=== PATIENT | female | born 1960 | race Caucasian/White ===

== ENCOUNTER 2017-06-02 11:04 | Inpatient (IN) | payer OTHER ==
[2017-06-02] MEDS ORDERED: Diltiazem 25 MG/5 ML SDV IVPUSH ONE ×3 (11:16→13:11)
--- NOTE | 2017-06-02 11:23 | EDM.PDOC ---
ED HPI GENERAL MEDICAL PROBLEM - General Stated Complaint: CHEST PAIN Time Seen by Provider: 06/02/17 11:04 Source of Information: Reports: Patient, Family, RN History Limitations: Reports: No Limitations - History of Present Illness INITIAL COMMENTS - FREE TEXT/NARRATIVE: 56 years old w f with a history of CAD, S/P CAB 05/19/2017 at [facility], was at the cardiorehab center here at [place], when she suddenly felt palpitations. Her monitor showed A fib with RVR. This is a new Dx. Pt is on Amioderone> Pt denies any constitutional symptoms like N/V/ CP, SOB or dizziness. She is otherwise in her usual state of health. Pt was brought to the ed by wheel chair. Onset: Today Onset Date: 06/02/17 Onset Time: 10:00 Duration: Hour(s):, Intermittent Location: Reports: Chest Severity: Moderate Context: Reports: Other (at rest) Associated Symptoms: Reports: No Other Symptoms - Related Data Allergies Allergy/AdvReac Type Severity Reaction Status Date / Time No Known Allergies Allergy Verified 06/02/17 11:39 Home Meds: Home Meds Aspirin [Ecotrin] 81 mg PO DAILY 01/27/17 [History] Clopidogrel [Plavix] 75 mg PO DAILY 01/27/17 [History] atorvaSTATin [Lipitor] 80 mg PO DAILY 01/27/17 [History] Albuterol [Proventil HFA] 2 puff INH Q6H PRN 06/02/17 [History] Amiodarone [Cordarone] 200 mg PO DAILY 06/02/17 [History] Ergocalciferol (Vitamin D2) [Ergocalciferol] 1 gm MC DAILY 06/02/17 [History] Hydrocodone/Acetaminophen [[place] 10-325 Tablet] 1 each PO Q4H PRN 06/02/17 [ History] Metoclopramide HCl [Reglan] 10 mg PO QIDACANDBED 06/02/17 [History] Metoprolol Tartrate 25 mg PO BID 06/02/17 [History] Multivitamin [Multivitamins] 1 each PO DAILY 06/02/17 [History] Omeprazole 20 mg PO DAILY 06/02/17 [History] Sennosides/Docusate Sodium [Senna-Docusate Sodium] 1 each PO BID PRN 06/02/17 [ History] Past Medical History Cardiovascular History: Reports: Angina, CAD, Heart Murmur, High Cholesterol, Hypertension Musculoskeletal History: Reports: Osteoarthritis Endocrine/Metabolic History: Reports: Obesity/BMI 30+ Other Immunologic History: HX OF MRSA - Past Surgical History Cardiovascular Surgical History: Reports: Coronary Artery Stent Female Surgical History: Reports: Hysterectomy Musculoskeletal Surgical History: Reports: Knee Replacement ED ROS GENERAL - Review of Systems Review Of Systems: See Below Constitutional: Reports: No Symptoms HEENT: Reports: No Symptoms Respiratory: Reports: No Symptoms Cardiovascular: Reports: Palpitations Endocrine: Reports: No Symptoms GI/Abdominal: Reports: No Symptoms : Reports: No Symptoms Musculoskeletal: Reports: No Symptoms Skin: Reports: No Symptoms Neurological: Reports: No Symptoms Psychiatric: Reports: No Symptoms Hematologic/Lymphatic: Reports: No Symptoms Immunologic: Reports: No Symptoms ED EXAM, GENERAL - Physical Exam Exam: See Below Exam Limited By: No Limitations General Appearance: Alert, WD/WN, No Apparent Distress Eye Exam: Bilateral Eye: Normal Inspection Ears: Normal External Exam Ear Exam: Bilateral Ear: Auricle Normal Nose: Normal Inspection, Normal Mucosa Throat/Mouth: Normal Inspection, Normal Lips Head: Atraumatic, Normocephalic Neck: Normal Inspection, Supple, Non-Tender, Full Range of Motion Respiratory/Chest: No Respiratory Distress, Other (decreased BS left lower lung) Cardiovascular: Normal Peripheral Pulses, Irregularly Irregular Peripheral Pulses: 1+: Femoral (L), Femoral (R) GI/Abdominal: Normal Bowel Sounds, Soft, Non-Tender, No Organomegaly, No Distention (Female) Exam: Deferred Rectal (Female) Exam: Deferred Back Exam: Normal Inspection, Full Range of Motion Extremities: Normal Inspection, Normal Range of Motion, Non-Tender, No Pedal Edema Neurological: Alert, Oriented, CN II-XII Intact, Normal Cognition Psychiatric: Normal Affect, Normal Mood Skin Exam: Warm, Dry, Intact, Normal Color, No Rash Lymphatic: No Adenopathy EKG INTERPRETATION EKG Date: 06/02/17 Time: 11:10 Rhythm: A-Fib Rate (Beats/Min): 138 [place]: Normal P-Wave: Absent QRS: LBBB ST-T: Normal QT: Prolonged Comparison: Change From Previous EKG EKG Interpretation Comments: New onset of a fib compared to the EKG taken on 05/19/2017 at [facility] Course - Vital Signs Text/Narrative:: 56 years old w f with a history of CAD, S/P CAB 05/19/2017 at [facility], was at the cardiorehab center here at [place], when she suddenly felt palpitations. Her monitor showed A fib with RVR. This is a new Dx. Pt is on Amioderone> Pt denies any constitutional symptoms like N/V/ CP, SOB or dizziness. She is otherwise in her usual state of health. Pt was brought to the ed by wheel chair. PE: WNWD WF with A - fib with RVR ECG: Prolonged QTc 506, is on Amioderone (can cause prolonged QTc) LBBB, A fib with RVR (new) Labs: WBC 12.5 HGB 11.1 HKT 33.3 TSH 15.4 (<5.0) BNP 456 Mg 1.7 (>1.8) Na 139 K 3.8 GFR >60 Imaging: CXR pneumonia LLL of lung as per RAD Impression: A fib with RVR, new onset. LBBB (old) S/P CABG 2 vesels May 19 2017 , Hypothyroidism (new), Hypomagnesemia (1.7), Pneumonia LLL of lung(new) 11.35 am consultation: Dr. Gould, [id number], [facility]: She is not worried about a QTc of 509, Amioderone to cont is OK, Cardiazem for A Fib is OK. Tx: Cadiazem, NS, MG sulfate Reexam: Improved to a rate of 66-105. Pt denies any constitutional symptoms. 1.53 pm: Consultation: Dr. Dunne, Hospitalist: Admit to ICU Cadiazem drip was not ordered by me because her HR improved spontaneously after my consultation with Dr. Dunne. Plan: Admitto ICU Last Recorded V/S: Last Vital Signs Temp 37.1 C 06/02/17 23:45 Pulse 72 06/02/17 23:45 Resp 06/02/17 23:45 BP 146/66 H 06/02/17 23:45 Pulse Ox 94 L 06/02/17 23:45 - Orders/Labs/Meds Orders: Active Orders 24 hr Category Date Time Status Patient Status [ADT] Routine ADT 06/02/17 14:01 Active Cardiac Monitoring [RC] 08,16,00 Care 06/02/17 14:06 Active Oxygen Therapy [RC] PRN Care 06/02/17 14:01 Active Up With Assistance [RC] 09,13,17,21 Care 06/02/17 14:00 Active Vital Signs [RC] 00,04,08,12,16,20 Care 06/02/17 14:01 Active 2 Gram Sodium Diet [DIET] Diet 06/02/17 Breakfast Ordered Docusate Sodium [Colace] Med 06/02/17 14:00 Active 100 mg PO BID PRN Ondansetron [Zofran] Med 06/02/17 14:00 Active 4 mg IV Q4H PRN Sodium Chloride 0.9% [Saline Flush] Med 06/02/17 14:00 Active 10 ml FLUSH ASDIRECTED PRN Peripheral IV Insertion Adult [OM.PC] Routine Oth 06/02/17 14:00 Ordered Resuscitation Status Routine Resus Stat 06/02/17 14:00 Ordered EKG 12 Lead [EK] Routine Ther 06/02/17 11:11 Ordered EKG 12 Lead [EK] Routine Ther 06/02/17 12:19 Ordered Medication Orders Hydrocodone Bitart/Acetaminophen ([place] 325-10 Mg) 1 tab PO Q4H PRN PRN Reason: Pain Last Admin: 06/03/17 02:49 Dose: 1 tab Admin: 06/02/17 19:17 Dose: 1 tab Albuterol (Ventolin Hfa) 0 gm INH Q6H PRN PRN Reason: Dyspnea Amiodarone HCl (Cordarone) 200 mg PO DAILY [facility] Aspirin (Halfprin) 81 mg PO DAILY [facility] Atorvastatin Calcium (Lipitor) 80 mg PO DAILY [facility] Clopidogrel Bisulfate (Plavix) 75 mg PO DAILY [facility] Docusate Sodium (Colace) 100 mg PO BID PRN PRN Reason: Constipation Levothyroxine Sodium (Synthroid) 50 mcg PO 0600 [facility] Last Admin: 06/02/17 18:07 Dose: 50 mcg Metoclopramide HCl (Reglan) 10 mg PO QIDACANDBED [facility] Last Admin: 06/02/17 20:10 Dose: 10 mg Admin: 06/02/17 18:08 Dose: 10 mg Metoprolol Tartrate (Lopressor) 25 mg PO BID [facility] Last Admin: 06/02/17 20:10 Dose: 25 mg Multivitamins/Minerals/Vitamin C (Tab-A-Nicole) 1 tab PO DAILY [facility] Non-Formulary Medication (Ergocalciferol (Vitamin D2) [Ergocalciferol]) 1 gm MC DAILY [facility] Ondansetron HCl (Zofran) 4 mg IV Q4H PRN PRN Reason: Nausea/Vomiting Pantoprazole Sodium (Protonix) 40 mg PO ACBREAKFAST DILIP Senna/Docusate Sodium (Senna Plus) 1 tab PO BID PRN PRN Reason: Constipation Sodium Chloride (Saline Flush) 10 ml FLUSH ASDIRECTED PRN PRN Reason: Keep Vein Open Labs: Laboratory Tests 06/02/17 06/02/17 06/02/17 Range/Units 11:15 11:15 11:15 WBC 12.5 H (4.5-12.0) X10-3/uL RBC 3.86 (3.23-5.20) x10(6)uL Hgb 11.1 L (11.5-15.5) g/dL Hct 33.3 (30.0-51.3) % MCV 86.4 (80-96) fL MCH 28.9 (27.7-33.6) pg MCHC 33.4 (32.2-35.4) g/dL RDW 14.1 (11.5-15.5) % Plt Count 546 H (125-369) X10(3)uL MPV 8.6 (7.4-10.4) fL Add Manual Diff Yes Neutrophils % (Manual) 77 (46-82) % Lymphocytes % (Manual) 17 (13-37) % Monocytes % (Manual) 5 (4-12) % Eosinophils % (Manual) 1 (0-5) % Sodium 139 (135-145) mmol/L Potassium 3.8 (3.5-5.3) mmol/L Chloride 103 (100-110) mmol/L Carbon Dioxide 25 (23-29) mmol/L BUN 12 (5-20) mg/dL Creatinine 0.9 (0.6-1.3) mg/dL Est Cr Clr Drug Dosing TNP Estimated GFR (MDRD) > 60 (>60) BUN/Creatinine Ratio 13.3 (9-20) Glucose 107 (80-116) mg/dL Calcium 9.0 (8.6-10.2) mg/dL Magnesium 1.7 L (1.8-2.5) mg/dL Troponin I (0.02-0.06) NG/ML B-Natriuretic Peptide (0-100) pg/mL TSH, Ultra Sensitive 15.47 H* (0.4-5.5) nlU/mL Urine Color (YELLOW) Urine Appearance (CLEAR) Urine pH (5.0-6.5) Ur Specific [place] (1.010-1.025) Urine Protein (NEGATIVE) mg/dL Urine Glucose (UA) (NEGATIVE) mg/dL Urine Ketones (NEGATIVE) mg/dL Urine Occult Blood (NEGATIVE) Urine Nitrite (NEGATIVE) Urine Bilirubin (NEGATIVE) Urine Urobilinogen (NEGATIVE) mg/dL Ur Leukocyte Esterase (NEGATIVE) Urine WBC (0) Ur Squamous Epith Cells (NS,R,O) Urine Bacteria (NS) 06/02/17 06/02/17 06/02/17 Range/Units 11:15 11:15 13:10 WBC (4.5-12.0) X10-3/uL RBC (3.23-5.20) x10(6)uL Hgb (11.5-15.5) g/dL Hct (30.0-51.3) % MCV (80-96) fL MCH (27.7-33.6) pg MCHC (32.2-35.4) g/dL RDW (11.5-15.5) % Plt Count (125-369) X10(3)uL MPV (7.4-10.4) fL Add Manual Diff Neutrophils % (Manual) (46-82) % Lymphocytes % (Manual) (13-37) % Monocytes % (Manual) (4-12) % Eosinophils % (Manual) (0-5) % Sodium (135-145) mmol/L Potassium (3.5-5.3) mmol/L Chloride (100-110) mmol/L Carbon Dioxide (23-29) mmol/L BUN (5-20) mg/dL Creatinine (0.6-1.3) mg/dL Est Cr Clr Drug Dosing Estimated GFR (MDRD) (>60) BUN/Creatinine Ratio (9-20) Glucose (80-116) mg/dL Calcium (8.6-10.2) mg/dL Magnesium (1.8-2.5) mg/dL Troponin I < 0.01 L (0.02-0.06) NG/ML B-Natriuretic Peptide 437 H (0-100) pg/mL TSH, Ultra Sensitive (0.4-5.5) nlU/mL Urine Color Yellow (YELLOW) Urine Appearance Slightly cloudy (CLEAR) Urine pH 7.0 H (5.0-6.5) Ur Specific [place] 1.010 (1.010-1.025) Urine Protein Negative (NEGATIVE) mg/dL Urine Glucose (UA) Normal (NEGATIVE) mg/dL Urine Ketones Negative (NEGATIVE) mg/dL Urine Occult Blood Negative (NEGATIVE) Urine Nitrite Negative (NEGATIVE) Urine Bilirubin Negative (NEGATIVE) Urine Urobilinogen Normal (NEGATIVE) mg/dL Ur Leukocyte Esterase Negative (NEGATIVE) Urine WBC 0-5 (0) Ur Squamous Epith Cells Few H (NS,R,O) Urine Bacteria Few H (NS) Meds: Medications Generic Name Dose Route Start Last Admin Trade Name Freq PRN Reason Stop Dose Admin Hydrocodone Bitart/Acetaminophen 1 tab 06/02/17 17:23 06/03/17 02:49 [place] 325-10 Mg PO 1 tab Q4H PRN Administration Pain Albuterol 0 gm 06/02/17 17:23 Ventolin Hfa INH Q6H PRN Dyspnea Amiodarone HCl 200 mg 06/03/17 09:00 Cordarone PO DAILY [facility] Aspirin 81 mg 06/03/17 09:00 Halfprin PO DAILY [facility] Atorvastatin Calcium 80 mg 06/03/17 09:00 Lipitor PO DAILY [facility] Clopidogrel Bisulfate 75 mg 06/03/17 09:00 Plavix PO DAILY [facility] Docusate Sodium 100 mg 06/02/17 14:00 Colace PO BID PRN Constipation Levothyroxine Sodium 50 mcg 06/02/17 17:30 06/02/17 18:07 Synthroid PO 50 mcg 0600 [facility] Administration Metoclopramide HCl 10 mg 06/02/17 17:30 06/02/17 20:10 Reglan PO 10 mg QIDACANDBED [facility] Administration Metoprolol Tartrate 25 mg 06/02/17 21:00 06/02/17 20:10 Lopressor PO 25 mg BID [facility] Administration Multivitamins/Minerals/Vitamin C 1 tab 06/03/17 09:00 Tab-A-Nicole PO DAILY [facility] Non-Formulary Medication 1 gm 06/03/17 09:00 Ergocalciferol (Vitamin D2) [Ergocalciferol] MC DAILY [facility] Ondansetron HCl 4 mg 06/02/17 14:00 Zofran IV Q4H PRN Nausea/Vomiting Pantoprazole Sodium 40 mg 06/03/17 07:30 Protonix PO ACBREAKFAST DILIP Senna/Docusate Sodium 1 tab 06/02/17 17:23 Senna Plus PO BID PRN Constipation Sodium Chloride 10 ml 06/02/17 14:00 Saline Flush FLUSH ASDIRECTED PRN Keep Vein Open Discontinued Medications Generic Name Dose Route Start Last Admin Trade Name Freq PRN Reason Stop Dose Admin Diltiazem HCl 20 mg 06/02/17 11:16 06/02/17 11:56 Diltiazem IVPUSH 06/02/17 11:17 10 mg ONETIME ONE Administration Diltiazem HCl 10 mg 06/02/17 12:36 06/02/17 12:49 Diltiazem IVPUSH 06/02/17 12:37 10 mg ONETIME ONE Administration Diltiazem HCl 25 mg 06/02/17 13:11 06/02/17 13:33 Diltiazem IVPUSH 06/02/17 13:12 25 mg ONETIME ONE Administration Sodium Chloride 1,000 mls @ 999 mls/hr 06/02/17 12:08 06/02/17 12:14 Normal Saline IV 06/02/17 13:08 999 mls/hr .BOLUS ONE Administration Magnesium Sulfate 1 gm/ 52 mls @ 100 mls/hr 06/02/17 12:26 06/02/17 13:14 Dextrose/Water IV 06/02/17 12:57 100 mls/hr ONETIME ONE Administration Departure - Departure Time of Disposition: 14:00 Disposition: Admitted As Inpatient 65 Condition: Fair Clinical Impression: Atrial fibrillation with RVR - My Orders Last 24 Hours: My Active Orders 06/02/17 11:11 EKG 12 Lead [EK] Routine 06/02/17 12:19 EKG 12 Lead [EK] Routine 06/02/17 14:00 Up With Assistance [RC] ,,, Docusate Sodium [Colace] 100 mg PO BID PRN Ondansetron [Zofran] 4 mg IV Q4H PRN Sodium Chloride 0.9% [Saline Flush] 10 ml FLUSH ASDIRECTED PRN Peripheral IV Insertion Adult [OM.PC] Routine Resuscitation Status Routine 06/02/17 14:01 Patient Status [ADT] Routine Oxygen Therapy [RC] PRN Vital Signs [RC] 00,04,08,12,16,20 06/02/17 14:06 Cardiac Monitoring [RC] 08,16,00 06/02/17 Breakfast 2 Gram Sodium Diet [DIET] - Assessment/Plan Last 24 Hours: My Active Orders 06/02/17 11:11 EKG 12 Lead [EK] Routine 06/02/17 12:19 EKG 12 Lead [EK] Routine 06/02/17 14:00 Up With Assistance [RC] ,,, Docusate Sodium [Colace] 100 mg PO BID PRN Ondansetron [Zofran] 4 mg IV Q4H PRN Sodium Chloride 0.9% [Saline Flush] 10 ml FLUSH ASDIRECTED PRN Peripheral IV Insertion Adult [OM.PC] Routine Resuscitation Status Routine 06/02/17 14:01 Patient Status [ADT] Routine Oxygen Therapy [RC] PRN Vital Signs [RC] 00,04,08,12,16,20 06/02/17 14:06 Cardiac Monitoring [RC] 08,16,00 06/02/17 Breakfast 2 Gram Sodium Diet [DIET]
[2017-06-02] MEDS ORDERED: Sodium Chloride 0.9% 1,000 ML IV ONE (12:08)
[2017-06-02] MEDS ORDERED: Sodium Chloride 0.9% 10 ML Syringe FLUSH PRN (14:00)
[2017-06-02] MEDS ORDERED: Docusate Sodium 100 MG Cap PO PRN (14:00)
[2017-06-02] MEDS ORDERED: Ondansetron 4 MG/2 ML SDV IV PRN (14:00)
--- NOTE | 2017-06-02 15:14 | CR ---
INDICATION: Chest pain, history of bypass 10 days ago. CHEST: An AP portable upright view of the chest 06/02/2017 was compared with and 05/19/2017, revealing evidence of CABG surgery, as previously, with the heart enlarged. Overlying EKG leads are noted. Pleuroparenchymal changes are noted at the left lung base, which may be at least partly post-surgical. However, the possibility of pneumonia, pleuritis, and possibly atelectasis cannot be excluded. Very minimal blunting of the right costophrenic angle is noted, which could represent some minimal pleural effusion or pleuritis. The minor fissure is also visualized, suggesting minimal pleural fluid on the right. Moderate sized pleural effusion may be present on the left. The upper lung field pulmonary vasculature is mildly prominent, raising question of a mild or chronic CHF. COPD could also produce a similar appearance. IMPRESSION: 1. ASHD, cardiomegaly, post CABG surgery changes., some of which may be pleuroparenchymal changes at the left lung base. However, pneumonia and pleuritis, and possibly atelectasis, as well as a moderate sized pleural effusion, cannot be excluded on the left. Findings should be correlated clinically. 2. Minimal pleural effusion on the right. 3. Possible COPD. Report was given by phone to Dr. Zac altman pdary (06/02/2017) HILARY
[2017-06-02] MEDS ORDERED: Albuterol 8 GM Inhaler INH PRN (17:23)
--- NOTE | 2017-06-02 17:30 | PCM.HP ---
H&P History of Present Illness - General Date of Service: 06/02/17 Admit Problem/Dx: Admission Diagnosis/Problem Admission Diagnosis/Problem Atrial fibrillation with rapid ventricular response Source of Information: Patient History Limitations: Reports: No Limitations - History of Present Illness Initial Comments - Free Text/Narative: This is a 56-year-old female patient but had bypass surgery by Dr. Guillermo 10 days ago. She states last 2 days she's been having some chest palpitations and sometimes low pressure. It comes and goes. She came to [place] today to start her cardiac rehabilitation. In her heart rate was racing. So she is brought to the ER and found to be in atrial flutter. She states she was atrophic after her bypass surgery was given amiodarone. She denies shortness of breath, wheezing, fevers, chills, ear pain, sore throat. - Related Data Allergies/Adverse Reactions: Allergies Allergy/AdvReac Type Severity Reaction Status Date / Time No Known Allergies Allergy Verified 06/02/17 11:39 Home Medications: Home Meds Aspirin [Ecotrin] 81 mg PO DAILY 01/27/17 [History] Clopidogrel [Plavix] 75 mg PO DAILY 01/27/17 [History] atorvaSTATin [Lipitor] 80 mg PO DAILY 01/27/17 [History] Albuterol [Proventil HFA] 2 puff INH Q6H PRN 06/02/17 [History] Amiodarone [Cordarone] 200 mg PO DAILY 06/02/17 [History] Ergocalciferol (Vitamin D2) [Ergocalciferol] 1 gm MC DAILY 06/02/17 [History] Hydrocodone/Acetaminophen [[place] 10-325 Tablet] 1 each PO Q4H PRN 06/02/17 [ History] Metoclopramide HCl [Reglan] 10 mg PO QIDACANDBED 06/02/17 [History] Metoprolol Tartrate 25 mg PO BID 06/02/17 [History] Multivitamin [Multivitamins] 1 each PO DAILY 06/02/17 [History] Omeprazole 20 mg PO DAILY 06/02/17 [History] Sennosides/Docusate Sodium [Senna-Docusate Sodium] 1 each PO BID PRN 06/02/17 [ History] Past Medical History HEENT History: Reports: Impaired Vision Cardiovascular History: Reports: Angina, CAD, Heart Murmur, High Cholesterol, Hypertension Gastrointestinal History: Reports: None Genitourinary History: Reports: None Musculoskeletal History: Reports: Osteoarthritis Psychiatric History: Reports: Anxiety Endocrine/Metabolic History: Reports: Obesity/BMI 30+ Other Immunologic History: HX OF MRSA - Past Surgical History Cardiovascular Surgical History: Reports: Coronary Artery Stent Female Surgical History: Reports: Hysterectomy Musculoskeletal Surgical History: Reports: Knee Replacement Social & Family History - Family History Family Medical History: Noncontributory - Tobacco Use Smoking Status *Q: Former Smoker Used Tobacco, but Quit: Yes Month Tobacco Last Used: sep Second Hand Smoke Exposure: No - Caffeine Use Caffeine Use: Reports: Coffee - Recreational Drug Use Recreational Drug Use: No H&P Review of Systems - Review of Systems: Review Of Systems: See Below General: Reports: No Symptoms HEENT: Reports: No Symptoms Pulmonary: Reports: No Symptoms Cardiovascular: Reports: Chest Pain, Palpitations Gastrointestinal: Reports: No Symptoms Genitourinary: Reports: Other (Chest pain secondary to surgical site) Musculoskeletal: Reports: No Symptoms Skin: Reports: Other (Wound chest) Psychiatric: Reports: No Symptoms Neurological: Reports: No Symptoms Hematologic/Lymphatic: Reports: No Symptoms Immunologic: Reports: No Symptoms Exam - Exam Exam: See Below - Vital Signs Vital Signs: Last Vital Signs Temp 98.2 F 06/02/17 14:01 Pulse 108 H 06/02/17 14:01 Resp 18 06/02/17 14:01 BP 127/63 06/02/17 14:01 Pulse Ox 93 L 06/02/17 14:01 Weight: 207 lb - Exam General: Alert, Oriented, Cooperative HEENT: Hearing Intact, Mucosa Moist & [place], Posterior Pharynx Clear, TMs Clear Neck: Supple, Trachea Midline Lungs: Clear to Auscultation, Normal Respiratory Effort Cardiovascular: Regular Rate, Regular Rhythm, Normal S1, Normal S2 GI/Abdominal Exam: Normal Bowel Sounds, Non-Tender, No Organomegaly, No Distention, No Mass Back Exam: Normal Inspection Extremities: Normal Inspection, Normal Range of Motion, Non-Tender, Pedal Edema Skin: Warm, Dry, Intact, Other (Wound of the chest healing nicely) Neurological: Normal Speech, Normal Tone Psychiatric: Alert, Normal Affect, Normal Mood - Patient Data Lab Results Last 24 hrs: Laboratory Results - last 24 hr 09/28/17 Range/Units 14:45 Lactic Acid 1.2 (0.5-2.2) mmol/L Result Diagrams: 06/02/17 11:15 06/02/17 11:15 *Q Meaningful Use (ADM) - VTE *Q VTE Criteria *Q: - Stroke *Q Stroke Criteria *Q: - AMI *Q AMI Criteria *Q: - Problem List (1) Rapid atrial fibrillation SNOMED Code(s): 317619611 ICD Code: I48.91 - UNSPECIFIED ATRIAL FIBRILLATION Status: Acute Current Visit: Yes (2) Hypothyroidism SNOMED Code(s): 63061830 ICD Code: E03.9 - HYPOTHYROIDISM, UNSPECIFIED Status: Acute Current Visit : Yes (3) Coronary artery disease SNOMED Code(s): 52120037 ICD Code: I25.10 - ATHSCL HEART DISEASE OF [place] CORONARY ARTERY W/O ANG PCTRS Status: Acute Current Visit: Yes (4) Coronary artery disease involving coronary bypass graft SNOMED Code(s): 784184979, 25733918, 766287078, 736507595, 151615570 ICD Code: I25.810 - ATHEROSCLEROSIS OF CABG W/O ANGINA PECTORIS Status: Acute Current Visit: Yes Problem List Initiated/Reviewed/Updated: Yes Orders Last 24hrs: Active Orders 24 hr Category Date Time Status CULTURE BLOOD [BC] Urgent Lab 06/02/17 14:45 Received CULTURE BLOOD [BC] Urgent Lab 06/02/17 14:55 Received Acetaminophen/HYDROcodone [[place] 325-10 MG] Med 06/02/17 17:23 Ordered 1 each PO Q4H PRN Albuterol [Ventolin HFA] Med 06/02/17 17:23 Ordered 2 puff INH Q6H PRN Amiodarone [Cordarone] Med 06/03/17 09:00 Ordered 200 mg PO DAILY Aspirin [Halfprin] Med 06/03/17 09:00 Ordered 81 mg PO DAILY Clopidogrel [Plavix] Med 06/03/17 09:00 Ordered 75 mg PO DAILY Docusate Sodium/Sennosides [Senna Plus] Med 06/02/17 17:23 Ordered 1 each PO BID PRN Ergocalciferol (Vitamin D2) [Ergocalciferol] Med 06/03/17 09:00 Ordered 1 gm MC DAILY Levothyroxine [Synthroid] Med 06/02/17 17:30 Ordered 50 mcg PO 0600 Metoclopramide [Reglan] Med 06/02/17 17:30 Ordered 10 mg PO QIDACANDBED Metoprolol Tartrate [Lopressor] Med 06/02/17 21:00 Ordered 25 mg PO BID Multivitamin [Multivitamins] Med 06/03/17 09:00 Ordered 1 each PO DAILY Omeprazole [Omeprazole] Med 06/03/17 09:00 Ordered 20 mg PO DAILY atorvaSTATin [Lipitor] Med 06/03/17 09:00 Ordered 80 mg PO DAILY Blood Culture x2 Reflex Set [OM.PC] Urgent Oth 06/02/17 14:28 Ordered Medication Orders Hydrocodone Bitart/Acetaminophen ([place] 325-10 Mg) tab PO Q4H PRN PRN Reason: Pain Albuterol (Ventolin Hfa) gm INH Q6H PRN PRN Reason: Dyspnea Amiodarone HCl (Cordarone) 200 mg PO DAILY [facility] Aspirin (Halfprin) 81 mg PO DAILY [facility] Docusate Sodium (Colace) 100 mg PO BID PRN PRN Reason: Constipation Non-Formulary Medication (Atorvastatin [Lipitor]) 80 mg PO DAILY [facility] Ondansetron HCl (Zofran) 4 mg IV Q4H PRN PRN Reason: Nausea/Vomiting Sodium Chloride (Saline Flush) 10 ml FLUSH ASDIRECTED PRN PRN Reason: Keep Vein Open Assessment/Plan Comment:: 1. When I saw the patient she converted. 2. I did consider sending her home but she's had this off-and-on for 2 days and decided bypass surgery so keep her for observation. 3. Full code. 4. Start 50 g of levothyroxine. 5. Cardiac diet. 6. Continue her home medications. 7. Stop the Cardizem drip which is artery been done. If she starts going into rapid A. fib again restarted with a bolus of 20 and then titrate.
[2017-06-02] MEDS: Levothyroxine 50 MCG Tab PO SCH (18:07)
[2017-06-02] MEDS: Metoclopramide 10 MG Tab PO SCH ×2 (18:08→20:10)
[2017-06-02] MEDS: Acetaminophen/HYDROcodone 325-10 MG Tab PO PRN (19:17)
[2017-06-02] MEDS: Metoprolol Tartrate 25 MG Tab PO SCH (20:10)
[2017-06-03] MEDS: Acetaminophen/HYDROcodone 325-10 MG Tab PO PRN (02:49)
[2017-06-03] MEDS: Levothyroxine 50 MCG Tab PO SCH (06:17)
[2017-06-03] MEDS ORDERED: Pantoprazole 40 MG Tab.CR PO SCH (07:30)
[2017-06-03] MEDS ORDERED: atorvaSTATin 40 MG Tab PO SCH (09:00)
[2017-06-03] MEDS ORDERED: Clopidogrel 75 MG Tab PO SCH (09:00)
[2017-06-03] MEDS ORDERED: Aspirin 81 MG Tab.EC PO SCH (09:00)
[2017-06-03] MEDS ORDERED: ERGOCALCIFEROL MC SCH (09:00)
[2017-06-03] MEDS ORDERED: Multivitamin Tab PO SCH (09:00)
[2017-06-03] MEDS ORDERED: Amiodarone 200 MG Tab PO SCH (09:00)
[2017-06-03] MEDS: Metoclopramide 10 MG Tab PO SCH (09:29)
[2017-06-03] MEDS: Metoprolol Tartrate 25 MG Tab PO SCH (09:30)
[2017-06-03 09:31] VITALS: BP 141/87
--- NOTE | 2017-06-03 09:32 | PCM.PN ---
- General Info Date of Service: 06/03/17 Admission Dx/Problem (Free Text): Admission Diagnosis/Problem Admission Diagnosis/Problem Atrial fibrillation with rapid ventricular response Subjective Update: Patient slept well. Has no complaints this morning. Reportedly she converted last night Functional Status: Reports: Pain Controlled - Review of Systems General: Reports: No Symptoms HEENT: Reports: No Symptoms Pulmonary: Reports: No Symptoms Cardiovascular: Reports: No Symptoms Gastrointestinal: Reports: No Symptoms Genitourinary: Reports: No Symptoms Musculoskeletal: Reports: No Symptoms Skin: Reports: No Symptoms Neurological: Reports: No Symptoms Psychiatric: Reports: No Symptoms - Patient Data Vitals - Most Recent: Last Vital Signs Temp 98.6 F 06/03/17 07:58 Pulse 82 06/03/17 07:58 Resp 18 06/03/17 07:58 BP 141/82 H 06/03/17 07:58 Pulse Ox 94 L 06/03/17 07:58 Weight - Most Recent: 93.894 kg Lab Results Last 24 Hours: Laboratory Results - last 24 hr 06/02/17 06/03/17 06/03/17 Range/Units 14:45 08:50 08:50 Sodium 136 (135-145) mmol/L Potassium 3.6 (3.5-5.3) mmol/L Chloride 99 L (100-110) mmol/L Carbon Dioxide 28 (23-29) mmol/L BUN 11 (5-20) mg/dL Creatinine 0.9 (0.6-1.3) mg/dL Est Cr Clr Drug Dosing 59.55 mL/min Estimated GFR (MDRD) > 60 (>60) BUN/Creatinine Ratio 12.2 (9-20) Glucose 129 H (80-116) mg/dL Lactic Acid 1.2 (0.5-2.2) mmol/L Calcium 8.9 (8.6-10.2) mg/dL Troponin I < 0.01 L (0.02-0.06) NG/ML B-Natriuretic Peptide (0-100) pg/mL 06/03/17 Range/Units 08:50 Sodium (135-145) mmol/L Potassium (3.5-5.3) mmol/L Chloride (100-110) mmol/L Carbon Dioxide (23-29) mmol/L BUN (5-20) mg/dL Creatinine (0.6-1.3) mg/dL Est Cr Clr Drug Dosing mL/min Estimated GFR (MDRD) (>60) BUN/Creatinine Ratio (9-20) Glucose (80-116) mg/dL Lactic Acid (0.5-2.2) mmol/L Calcium (8.6-10.2) mg/dL Troponin I (0.02-0.06) NG/ML B-Natriuretic Peptide 451 H (0-100) pg/mL Med Orders - Current: Current Medications Hydrocodone Bitart/Acetaminophen ([place] 325-10 Mg) 1 tab PO Q4H PRN PRN Reason: Pain Last Admin: 06/03/17 02:49 Dose: 1 tab Albuterol (Ventolin Hfa) 0 gm INH Q6H PRN PRN Reason: Dyspnea Amiodarone HCl (Cordarone) 200 mg PO DAILY [facility] Aspirin (Halfprin) 81 mg PO DAILY [facility] Atorvastatin Calcium (Lipitor) 80 mg PO DAILY [facility] Clopidogrel Bisulfate (Plavix) 75 mg PO DAILY [facility] Docusate Sodium (Colace) 100 mg PO BID PRN PRN Reason: Constipation Levothyroxine Sodium (Synthroid) 50 mcg PO 0600 [facility] Last Admin: 06/03/17 06:17 Dose: 50 mcg Metoclopramide HCl (Reglan) 10 mg PO QIDACANDBED [facility] Last Admin: 06/02/17 20:10 Dose: 10 mg Metoprolol Tartrate (Lopressor) 25 mg PO BID [facility] Last Admin: 06/02/17 20:10 Dose: 25 mg Multivitamins/Minerals/Vitamin C (Tab-A-Nicole) 1 tab PO DAILY [facility] Non-Formulary Medication (Ergocalciferol (Vitamin D2) [Ergocalciferol]) 1 gm MC DAILY [facility] Ondansetron HCl (Zofran) 4 mg IV Q4H PRN PRN Reason: Nausea/Vomiting Pantoprazole Sodium (Protonix) 40 mg PO ACBREAKFAST [facility] Senna/Docusate Sodium (Senna Plus) 1 tab PO BID PRN PRN Reason: Constipation Sodium Chloride (Saline Flush) 10 ml FLUSH ASDIRECTED PRN PRN Reason: Keep Vein Open Discontinued Medications Diltiazem HCl (Diltiazem) 20 mg IVPUSH ONETIME ONE Stop: 06/02/17 11:17 Last Admin: 06/02/17 11:56 Dose: 10 mg Diltiazem HCl (Diltiazem) 10 mg IVPUSH ONETIME ONE Stop: 06/02/17 12:37 Last Admin: 06/02/17 12:49 Dose: 10 mg Diltiazem HCl (Diltiazem) 25 mg IVPUSH ONETIME ONE Stop: 06/02/17 13:12 Last Admin: 06/02/17 13:33 Dose: 25 mg Sodium Chloride (Normal Saline) 1,000 mls @ 999 mls/hr IV .BOLUS ONE Stop: 06/02/17 13:08 Last Admin: 06/02/17 12:14 Dose: 999 mls/hr Magnesium Sulfate 1 gm/ (Dextrose/Water) 52 mls @ 100 mls/hr IV ONETIME ONE Stop: 06/02/17 12:57 Last Admin: 06/02/17 13:14 Dose: 100 mls/hr - Exam General: Alert, Oriented HEENT: Pupils Equal, Pupils Reactive, EOMI, Mucous Membr. Moist/[place] Neck: Supple Lungs: Clear to Auscultation, Normal Respiratory Effort Cardiovascular: Regular Rate, Regular Rhythm GI/Abdominal Exam: Normal Bowel Sounds, Soft, Non-Tender, No Organomegaly, No Distention, No Abnormal Bruit, No Mass, Pelvis Stable (Female) Exam: Normal External Exam, Normal Speculum Exam, Normal Bimanual Exam Back Exam: Normal Inspection, Full Range of Motion Extremities: Normal Inspection, Normal Range of Motion, Non-Tender, No Pedal Edema, Normal Capillary Refill Skin: Warm, Dry, Intact Wound/Incisions: Healing Well Neurological: No New Focal Deficit Psy/Mental Status: Alert, Normal Affect, Normal Mood - Problem List & Annotations (1) Atrial fibrillation with RVR SNOMED Code(s): 860907689954320 Code(s): I48.91 - UNSPECIFIED ATRIAL FIBRILLATION Status: Acute Current Visit: Yes (2) Coronary artery disease involving coronary bypass graft SNOMED Code(s): 122391745, 50140263, 594293191, 678825337, 728604811 Code(s): I25.810 - ATHEROSCLEROSIS OF CABG W/O ANGINA PECTORIS Status: Acute Current Visit: Yes Qualifiers: [place] vs. transplanted heart: [place] heart (3) Hypothyroidism SNOMED Code(s): 02528109 Code(s): E03.9 - HYPOTHYROIDISM, UNSPECIFIED Status: Acute Current Visit : Yes Qualifiers: Hypothyroidism type: unspecified Qualified Code(s): E03.9 - Hypothyroidism , unspecified - Problem List Review Problem List Initiated/Reviewed/Updated: Yes - Plan Plan:: 1. I will discharge the patient home today. I spoke with cardiology and recommended Plavix and Cymbalta because her chads score is more than 2. She will follow-up next week and I will also refer to electrophysiology.
--- NOTE | 2017-06-04 10:13 | DISCH ---
DISCHARGE DATE: 06/03/2017 REASON FOR ADMISSION: Atrial fibrillation with rapid ventricular response. DISCHARGE DIAGNOSES: 1. Atrial fibrillation with rapid ventricular response. 2. Coronary disease status, status post coronary artery bypass grafting x2. 3. History of percutaneous coronary intervention in October 2015. 4. Hypertension. 5. Hypothyroidism. 6. Prediabetes. BRIEF HISTORY AND HOSPITAL COURSE: This is a 56-year-old female who came in with palpitations from [facility]. She was found to have atrial fibrillation with rapid ventricular response, was treated with an IV drip and converted overnight. I discharged her home asymptomatic today the . I discussed with the Cardiology about anticoagulation given her CHADS score and she went home on Xarelto 10 mg a day and Plavix 75 mg a day. We stopped the aspirin. Of note, she has not been taking the Plavix. I made a referral to Electrophysiology and also recommended that she see Dr. Shell, next week at the clinic. The rest of the home medications including statin, HENRY inhibitors, and beta-adriel were continued. Please see the electronic record for the complete details. I spent more than 35 minutes in the discharge of the patient. TSH was 15, but I favored observation until repeat is done next week, perhaps with a free T4 and free T3 before treatment. In addition, I reviewed the echocardiogram that was done on 04/21, ejection fraction was 45%. /[id number] FRANCOISE/RUPESH
== END 2017-06-03 10:45 | disposition home or self-care (01) | DRG 310 ==
LOC: FB.ED 11:04 → FB.ICU 14:01
PROVIDERS: ADMIT Family Medicine; ATTEND Family Medicine
DX: I48.91 Unspecified atrial fibrillation (principal); I25.10 Atherosclerotic heart disease of native coronary artery without angina pectoris; I10 Essential (primary) hypertension; E78.00 Pure hypercholesterolemia, unspecified; I44.7 Left bundle-branch block, unspecified; Z95.1 Presence of aortocoronary bypass graft; M19.90 Unspecified osteoarthritis, unspecified site; Z86.14 Personal history of Methicillin resistant Staphylococcus aureus infection; H54.7 Unspecified visual loss; E03.9 Hypothyroidism, unspecified; Z87.891 Personal history of nicotine dependence; F41.9 Anxiety disorder, unspecified; Z96.659 Presence of unspecified artificial knee joint; Z79.01 Long term (current) use of anticoagulants; R73.03 Prediabetes
CPT/HCPCS: 36415; 71010; 80048; 81001; 83605; 83735; 83880; 84443; 84484; 85025; 87040; 93005; 96361; 96365; 96375; 96376; 99285; A9270-GY; J3475; J3490; J7040; J7060